=== PATIENT | female | born 1960 | race Hispanic/Latino ===

== ENCOUNTER 2017-04-10 06:58 | Day surgery (SDC) | payer BC, OTHER ==
[~2017-04-10] VITALS: Ht 165.1 cm; Wt 95.7 kg
[~2017-04-10 06:58] MED LIST: METO50TA18 PO; SODIUM CHLORIDE 0.9% 1000ML 1,000 ML IV ONE; VALS1TAB81 PO
[2017-04-10 08:30] VITALS: BP 140/83
[2017-04-10] MEDS ORDERED: PROPOFOL 10 MG/ML 20ML VIAL IV ONE (09:26)
== END 2017-04-10 10:30 | disposition home or self-care (01) ==
LOC: DAH 06:58
PROVIDERS: ATTEND Internal Medicine Gastroenterology
DX: Z12.11 Encounter for screening for malignant neoplasm of colon (principal); K57.30 Diverticulosis of large intestine without perforation or abscess without bleeding; I10 Essential (primary) hypertension; Z79.899 Other long term (current) drug therapy; Z80.0 Family history of malignant neoplasm of digestive organs
CPT/HCPCS: A4606; G0105; J2704; J7030